=== PATIENT | female | born 1955 ===

== ENCOUNTER 2017-10-19 14:25 | Emergency (ER) | payer MEDICARE, MEDICAID ==
[2017-10-19 14:26] VITALS: BMI 25.0
[2017-10-19 14:43] VITALS: BP 97/68; PULSE 98; RESP 16; TEMP 98.2; O2SAT 98
== END 2017-10-19 15:35 | disposition left against medical advice (07) ==
LOC: H.ER 14:25
DX: Z02.89 Encounter for other administrative examinations (principal)